=== PATIENT | female | born 1955 | race Caucasian/White ===

== ENCOUNTER → 2023-07-21 10:37 | Outpatient (REF) | payer OTHER, SELFPAY | LOC: WDC 10:37 | PROVIDERS: ATTENDING PHYSICIAN Physician Assistant Medical | DX: Z12.31 Encounter for screening mammogram for malignant neoplasm of breast (principal) | CPT/HCPCS: 77063; 77067 ==

== ENCOUNTER → 2024-07-22 12:33 | Outpatient (REF) | payer OTHER, SELFPAY | LOC: WDC 12:33 | PROVIDERS: ATTENDING PHYSICIAN Obstetrics & Gynecology; FAMILY PHYSICIAN Physician Assistant Medical | DX: Z12.31 Encounter for screening mammogram for malignant neoplasm of breast (principal) | CPT/HCPCS: 77063; 77067 ==